=== PATIENT | male | born 1960 | race Hispanic/Latino ===

== ENCOUNTER 2018-12-04 08:20 | Day surgery (SDC) | payer MEDICAID ==
[2018-12-04] MEDS ORDERED: Lactated Ringer's 500 ML IV ONE (08:43)
[2018-12-04 08:56] VITALS: O2SAT 100
[2018-12-04 08:57] VITALS: BMI 24.3
[2018-12-04] MEDS ORDERED: Midazolam 2 MG/2 ML VIAL ONE (10:27)
[2018-12-04] MEDS ORDERED: Propofol 10 mg/ml Inj (20 ML) ONE (10:28)
[2018-12-04 11:02] VITALS: TEMP 96.4
[2018-12-04 11:14] VITALS: BP 122/68; PULSE 70; RESP 20
== END 2018-12-04 13:52 | disposition home or self-care (01) ==
LOC: H.ENDO 08:20
PROVIDERS: ATTEND Internal Medicine Gastroenterology
DX: K29.70 Gastritis, unspecified, without bleeding (principal); K20.8 Other esophagitis; T66.XXXA Radiation sickness, unspecified, initial encounter; K22.8 Other specified diseases of esophagus; Z85.01 Personal history of malignant neoplasm of esophagus
CPT/HCPCS: 43239; 88305; J2001; J2250; J2704; J7120